=== PATIENT | female | born 1960 | race Two or more races ===

== ENCOUNTER → 2025-04-14 | Outpatient (CLI) | payer MEDICAID, SELFPAY ==
--- NOTE | 2025-04-14 09:45 | XR_ITS ---
Examination: Breast ultrasound, unilateral, left complete Date and time of exam: April 14, 2025 at 1001 hours INDICATIONS: Mammogram August 15, 2024 6 mm focal asymmetry upper left breast posterior depth, 6 mm focal asymmetry outer left breast Technique: Real-time felipe scale ultrasonographic imaging performed left breast including all 4 quadrants as well as nipple retroareolar and axillary region. Findings: 2:00 nodule circumscribed 7 x 8 mm Retroareolar nodule partially indistinct margins, 16 x 12 mm IMPRESSION: BI-RADS Category 4: Suspicious for malignancy Suspicious mass retroareolar region left breast, biopsy is needed to exclude breast carcinoma, this mass is amenable to ultrasound-guided breast biopsy for diagnosis
--- NOTE | 2025-04-14 10:15 | XR_ITS ---
Examination: Diagnostic digital mammography, unilateral, left Computer aided detection 3-D breast Tomosynthesis, unilateral Date and time of exam: April 14, 2025 1015 hours INDICATIONS: Mammogram August 15, 2024 6 mm focal asymmetry left breast posterior depth, 6 mm focal asymmetry outer left breast anterior depth Technique: Nonmagnified MLO, CC views of the left breast have been obtained, reconstructed from 3-D Tomosynthesis images. R2 computer aided detection program utilized for evaluation of suspicious masses and/or abnormal calcifications. 3-D Tomosynthesis images obtained. Findings: Scattered areas of fibroglandular density Retroareolar focal asymmetry, better depicted as retroareolar nodule partially indistinct margins 16 x 12 mm on left breast sonogram today Impression: BI-RADS category 4: Suspicious for malignancy Left breast sonogram today better demonstrates BI-RADS 4 suspicious nodule retroareolar region left breast, biopsy is needed to say breast carcinoma, this nodule is amenable to ultrasound-guided breast biopsy for diagnosis
== END | disposition home or self-care (01) ==
PROVIDERS: PCP Physician Assistant; Referring Provider Physician Assistant; Visit Provider Physician Assistant
DX: N63.42 Unspecified lump in left breast, subareolar (principal); N63.21 Unspecified lump in the left breast, upper outer quadrant; R92.322 Mammographic fibroglandular density, left breast; N64.89 Other specified disorders of breast
CPT/HCPCS: 76641; 77061; 77065; G0279

== ENCOUNTER → 2025-08-07 | Outpatient (CLI) | payer MEDICAID, SELFPAY ==
--- NOTE | 2025-08-07 11:30 | XR_ITS ---
EXAMINATION: Ultrasound soft tissue extremity right inguinal region TECHNIQUE: Grayscale sonographic images soft tissue right inguinal region Date and time: 2024, 11:00 a.m. INDICATIONS: Right inguinal pain beginning 2 months ago. FINDINGS: Small lymph nodes in the right groin, nonspecific, 12 x 11 mm, 18 x 7 mm, 18 x 8 mm IMPRESSION: Right groin lymphadenopathy
== END | disposition home or self-care (01) ==
PROVIDERS: PCP Physician Assistant; Referring Provider Physician Assistant; Visit Provider Physician Assistant
DX: R59.1 Generalized enlarged lymph nodes (principal)
CPT/HCPCS: 76882